=== PATIENT | male | born 1970 | race African-American/Black ===

== ENCOUNTER 2018-12-26 00:02 | Emergency (ER) | payer MEDICAID ==
[~2018-12-26] VITALS: Ht 175.3 cm; Wt 68.0 kg
[~2018-12-26 00:02] MED LIST: AMLODIPINE BES2.5 MG ORAL; COGENTIN1 MG ORAL; FLUPHENAZINE HCL5 MG ORAL; LISINOPRIL5 MG ORAL; METFORMIN HCL1000 M1 ORAL
[2018-12-26 00:16] VITALS: BP 112/72
--- NOTE | 2018-12-26 00:36 | NUR ---
ER Nurse Note: Pt came from [facility] c/o elevated blood sugar. Per EMS, pt was with family and reported elevated blood sugar and would not go down since today. Pt went to [place] for same reason recently. Pt a&ox3, VSS, talks with ailyn. Pt unable to provide urine. Will continue to [facility].
[2018-12-26 00:49] LABS: BASOPHILS % (AUTO) 1.2 % (0.0-2.0); EOSINOPHILS % (AUTO) 3.1 % (0.0-3.0); HEMATOCRIT 34.3 % (42.0-52.0); HEMOGLOBIN 11.8 G/DL (14.2-18.0); LYMPHOCYTES % (AUTO) 22.5 % (20.0-45.0); MEAN CORPUSCULAR VOLUME 90 FL (80-99); MONOCYTES % (AUTO) 5.6 % (1.0-10.0); NEUTROPHILS % (AUTO) 67.6 % (45.0-75.0); PLATELET COUNT 256 K/UL (150-450); RED CELL DISTRIBUTION WIDTH 11.5 % (11.6-14.8); WHITE BLOOD COUNT 9.2 K/UL (4.8-10.8)
[2018-12-26 01:22] LABS: BLOOD UREA NITROGEN 25 mg/dL (7-18); CALCIUM 9.5 MG/DL (8.5-10.1); CREATININE 1.7 MG/DL (0.55-1.30)
[2018-12-26 01:27] LABS: ALANINE AMINOTRANSFERASE 28 U/L (12-78); ALBUMIN 3.3 G/DL (3.4-5.0); ALBUMIN/GLOBULIN RATIO 0.8 (1.0-2.7); ALKALINE PHOSPHATASE 113 U/L (46-116); ANION GAP 9 mmol/L (5-15); ASPARTATE AMINO TRANSFERASE 19 U/L (15-37); BILIRUBIN,TOTAL 0.3 MG/DL (0.2-1.0); CARBON DIOXIDE 30 MMOL/L (21-32); CHLORIDE 100 MMOL/L (98-107); POTASSIUM 4.5 MMOL/L (3.5-5.1); SODIUM 138 MMOL/L (136-145)
--- NOTE | 2018-12-26 01:52 | NUR ---
CALL RECIVED FROM [facility] REGARDING THE TRANSFER THE MD WILL CALL BACK
--- NOTE | 2018-12-26 02:04 | Emergency Room Report ---
History of Present Illness General Chief Complaint: Abnormal Labs Source: Patient, Medical Record Present Illness HPI Patient presents from nursing facility with elevated glucose It was reported from the nursing facility at the patient had been outside with the family throughout the day upon returning had glucose that was elevated and it remained elevated and therefore the patient was transferred to the hospital Patient himself has previous CVA Denies any vomiting or diarrhea he reports that he did not take his medications earlier denies any fevers denies any neck pain Denies any dysuria or frequency Allergies: Coded Allergies: NO KNOWN ALLERGIES (Unverified Allergy, Unknown, 12/26/18) Patient History Past Medical History: see triage record Pertinent Family History: none Reviewed Nursing Documentation: PMH: Agreed; PSxH: Agreed Nursing Documentation-PMH Hx Hypertension: Yes Hx Diabetes: Yes Review of Systems All Other Systems: negative except mentioned in HPI Physical Exam Vital Signs Date Time Temp Pulse Resp B/P (MAP) Pulse Ox O2 Delivery O2 Flow Rate FiO2 12/26/18 00:03 98.2 81 16 104/72 97 Room Air Sp02 EP Interpretation: reviewed, normal General Appearance: well appearing, no apparent distress Head: normocephalic, atraumatic Eyes: bilateral eye PERRL, bilateral eye EOMI ENT: other - Facial drooping from previous CVA Neck: supple Respiratory: lungs clear Cardiovascular #1: regular rate, rhythm Gastrointestinal: non tender, soft Musculoskeletal: other - No obvious deficit acutely Neurologic: alert, oriented x3, responsive Skin: normal color, no rash, warm/dry Lymphatic: no adenopathy Medical Decision Making Diagnostic Impression: Primary Impression: Hyperglycemia ER Course Multiple differential considered patient had IV hydration Initiated blood work obtained Chemistry was showing signs of high glucose however there is no evidence of acidosis after further hydration and only 4 units of insulin patient's glucose Reduced down to below 200 patient remains awake and alert appropriate Patient resides at a nursing facility and at this time will be stable for close outpatient follow-up Labs Test 12/26/18 00:30 White Blood Count 9.2 K/UL (4.8-10.8) Red Blood Count 3.80 M/UL (4.70-6.10) Hemoglobin 11.8 G/DL (14.2-18.0) Hematocrit 34.3 % (42.0-52.0) Mean Corpuscular Volume 90 FL (80-99) Mean Corpuscular Hemoglobin 30.9 PG (27.0-31.0) Mean Corpuscular Hemoglobin Concent 34.3 G/DL (32.0-36.0) Red Cell Distribution Width 11.5 % (11.6-14.8) Platelet Count 256 K/UL (150-450) Mean Platelet Volume 7.3 FL (6.5-10.1) Neutrophils (%) (Auto) 67.6 % (45.0-75.0) Lymphocytes (%) (Auto) 22.5 % (20.0-45.0) Monocytes (%) (Auto) 5.6 % (1.0-10.0) Eosinophils (%) (Auto) 3.1 % (0.0-3.0) Basophils (%) (Auto) 1.2 % (0.0-2.0) Urine Color Yellow Urine Appearance Clear Urine pH 6.5 (4.5-8.0) Urine Specific Armstrong 1.015 (1.005-1.035) Urine Protein 2+ (NEGATIVE) Urine Glucose (UA) 4+ (NEGATIVE) Urine Ketones 1+ (NEGATIVE) Urine Blood Negative (NEGATIVE) Urine Nitrite Negative (NEGATIVE) Urine Bilirubin Negative (NEGATIVE) Urine Urobilinogen 8 MG/DL (0.0-1.0) Urine Leukocyte Esterase Negative (NEGATIVE) Urine RBC 0-2 /HPF (0 - 0) Urine WBC 0-2 /HPF (0 - 0) Urine Squamous Epithelial Cells Occasional /LPF Urine Bacteria Occasional /HPF (NONE) Sodium Level 138 MMOL/L (136-145) Potassium Level 4.5 MMOL/L (3.5-5.1) Chloride Level 100 MMOL/L (98-107) Carbon Dioxide Level 30 MMOL/L (21-32) Anion Gap 9 mmol/L (5-15) Blood Urea Nitrogen 25 mg/dL (7-18) Creatinine 1.7 MG/DL (0.55-1.30) Estimat Glomerular Filtration Rate 52.0 mL/min (>60) Glucose Level 381 MG/DL (74-106) Calcium Level 9.5 MG/DL (8.5-10.1) Total Bilirubin 0.3 MG/DL (0.2-1.0) Aspartate Amino Transf (AST/SGOT) 19 U/L (15-37) Alanine Aminotransferase (ALT/SGPT) 28 U/L (12-78) Alkaline Phosphatase 113 U/L (46-116) Total Protein 7.3 G/DL (6.4-8.2) Albumin 3.3 G/DL (3.4-5.0) Globulin 4.0 g/dL Albumin/Globulin Ratio 0.8 (1.0-2.7) Lipase 163 U/L (73-393) Labs Test 12/26/18 00:30 White Blood Count 9.2 K/UL (4.8-10.8) Red Blood Count 3.80 M/UL (4.70-6.10) Hemoglobin 11.8 G/DL (14.2-18.0) Hematocrit 34.3 % (42.0-52.0) Mean Corpuscular Volume 90 FL (80-99) Mean Corpuscular Hemoglobin 30.9 PG (27.0-31.0) Mean Corpuscular Hemoglobin Concent 34.3 G/DL (32.0-36.0) Red Cell Distribution Width 11.5 % (11.6-14.8) Platelet Count 256 K/UL (150-450) Mean Platelet Volume 7.3 FL (6.5-10.1) Neutrophils (%) (Auto) 67.6 % (45.0-75.0) Lymphocytes (%) (Auto) 22.5 % (20.0-45.0) Monocytes (%) (Auto) 5.6 % (1.0-10.0) Eosinophils (%) (Auto) 3.1 % (0.0-3.0) Basophils (%) (Auto) 1.2 % (0.0-2.0) Urine Color Yellow Urine Appearance Clear Urine pH 6.5 (4.5-8.0) Urine Specific Armstrong 1.015 (1.005-1.035) Urine Protein 2+ (NEGATIVE) Urine Glucose (UA) 4+ (NEGATIVE) Urine Ketones 1+ (NEGATIVE) Urine Blood Negative (NEGATIVE) Urine Nitrite Negative (NEGATIVE) Urine Bilirubin Negative (NEGATIVE) Urine Urobilinogen 8 MG/DL (0.0-1.0) Urine Leukocyte Esterase Negative (NEGATIVE) Urine RBC 0-2 /HPF (0 - 0) Urine WBC 0-2 /HPF (0 - 0) Urine Squamous Epithelial Cells Occasional /LPF Urine Bacteria Occasional /HPF (NONE) Sodium Level 138 MMOL/L (136-145) Potassium Level 4.5 MMOL/L (3.5-5.1) Chloride Level 100 MMOL/L (98-107) Carbon Dioxide Level 30 MMOL/L (21-32) Anion Gap 9 mmol/L (5-15) Blood Urea Nitrogen 25 mg/dL (7-18) Creatinine 1.7 MG/DL (0.55-1.30) Estimat Glomerular Filtration Rate 52.0 mL/min (>60) Glucose Level 381 MG/DL (74-106) Calcium Level 9.5 MG/DL (8.5-10.1) Total Bilirubin 0.3 MG/DL (0.2-1.0) Aspartate Amino Transf (AST/SGOT) 19 U/L (15-37) Alanine Aminotransferase (ALT/SGPT) 28 U/L (12-78) Alkaline Phosphatase 113 U/L (46-116) Total Protein 7.3 G/DL (6.4-8.2) Albumin 3.3 G/DL (3.4-5.0) Globulin 4.0 g/dL Albumin/Globulin Ratio 0.8 (1.0-2.7) Lipase 163 U/L (73-393) Last Vital Signs Date Time Temp Pulse Resp B/P (MAP) Pulse Ox O2 Delivery O2 Flow Rate FiO2 12/26/18 00:16 98.2 76 16 112/72 97 Room Air Status: improved Disposition: XFER SNF Condition: Improved Referrals: Zhang Shay DO (PCP) Additional Instructions: Patient is provided with the discharge instructions notified to follow up with primary doctor in the next 2-3 days otherwise return to the er with any worsening symptoms. Please note that this report is being documented using [employer] technology. This can lead to erroneous entry secondary to incorrect interpretation by the dictating instrument. Carlos Smith DO Dec 26, 2018 02:04
[2018-12-26] MEDS ORDERED: Insulin Human Regular 100units/ml 3ml IV ONE (02:15)
[2018-12-26 02:29] LABS: APPEARANCE,URINE CLEAR; BILIRUBIN, URINE NEGATIVE (NEGATIVE); GLUCOSE, URINE (UA) 4+ (NEGATIVE); KETONES,URINE 1+ (NEGATIVE); LEUKOCYTE ESTERASE ,URINE NEGATIVE (NEGATIVE); NITRITE,URINE NEGATIVE (NEGATIVE); PH,URINE 6.5 (4.5-8.0); PROTEIN,URINE 2+ (NEGATIVE); UROBILINOGEN,URINE 8 MG/DL (0.0-1.0)
[2018-12-26 02:30] LABS: COLOR,URINE YELLOW
[2018-12-26 02:54] VITALS: BP 137/71
--- NOTE | 2018-12-26 02:55 | NUR ---
ER Nurse Note: Pt calm, VSS, no signs of distress. No complain of pain. All orders completed per ERMD orders. Rechecked sugar, 124; MD notifed. All safety measures met. Pt stable to transfer; awaiting transportation. Will continue to [facility].
--- NOTE | 2018-12-26 03:20 | NUR ---
ER Nurse Note: Juice and sandwich given to pt. Pt resting; awaiting transport back to [facility].
[2018-12-26 03:58] VITALS: BP 137/71
--- NOTE | 2018-12-26 03:59 | NUR ---
ER Nurse Note: Report given to [facility] and [facility]. Pt seen, treated, medically cleared for transfer by ERMD. Discharge instructions and prescriptons given with repeat verbalization by BLS transfer. Instructed pt to follow up with primary care physican within one week. Pt a&ox4, VSS, no signs of distress. ID band removed; IV removed, site clean and bandaged. All safety measures met; left with all belongings with steady gait via BLS transportation.
--- NOTE | 2018-12-26 04:00 | NUR ---
report called to group home ([facility]) patient is to be transferd to group home via ambulance
== END 2018-12-26 04:03 ==
LOC: EDBD 00:02 → EMR 00:13 → EDBEDREQ 01:32 → EMR 04:03
DX: E11.65 Type 2 diabetes mellitus with hyperglycemia (principal); I69.992 Facial weakness following unspecified cerebrovascular disease; I10 Essential (primary) hypertension
CPT/HCPCS: 36415; 80053; 81003; 82962; 83690; 85025; 96360; 96361; 99284; J1815